=== PATIENT | male | born 1950 | race African-American/Black ===

== ENCOUNTER 2017-06-13 13:59 | Emergency (ER) | payer MEDICARE, OTHER ==
[~2017-06-13] VITALS: Ht 185.4 cm; Wt 99.8 kg
[~2017-06-13 13:59] MED LIST: AMLODIPINE BESYL5 MG PO; ANUSOL-HC25 MG RC; ASPIRIN81 M1 PO; CALCITRIOL0.25 MCG PO; CLONIDINE0.1 MG PO; DYRENIUM50 MG PO; HYGROTON PO; LIPITOR20 MG PO; LISINOPRIL20 MG PO; LOPRESSOR50 MG PO; NEURONTIN300 MG PO; NORVASC5 MG PO; PEN-VEE K500 MG PO; REFRESH PLUS 00.4 M1; TENORMIN25 MG PO; TERAZOSIN5 MG PO; ULTRAM50 MG PO
[2017-06-13] MEDS ORDERED: MEDROL DOSEPAK4 MG PO (14:27)
== END 2017-06-13 18:07 | disposition home or self-care (01) ==
LOC: ED 13:59
DX: T63.441A Toxic effect of venom of bees, accidental (unintentional), initial encounter (principal); M79.89 Other specified soft tissue disorders; Z79.899 Other long term (current) drug therapy; Y92.9 Unspecified place or not applicable